=== PATIENT | female | born 1970 | race Caucasian/White ===

== ENCOUNTER 2020-10-15 13:04 | Outpatient (REF) | payer MEDICARE, MEDICAID, SELFPAY ==
--- NOTE | ~2020-10-15 | US_ITS ---
EXAMINATION: US SCREENING ULTRASOUND BREAST, BILATERAL CLINICAL INFORMATION: 50 year old. Unable to undergo screening mammography or MR. COMPARISON: None. TECHNIQUE: Ultrasound is performed using grayscale imaging and color Doppler. Imaging is performed to include the four quadrants and retroareolar region. Both breasts are imaged. FINDINGS: Right breast: There is no suspicious finding by ultrasound. There is no cystic or solid mass or focal architectural abnormality. Left breast: There is no suspicious finding by ultrasound. There is no solid mass or focal architectural abnormality. US/US breast LT complete IMPRESSION: Unremarkable bilateral screening breast ultrasound. ASSESSMENT: BI-RADS 1: Negative RECOMMENDATION: 1. Routine annual clinical breast exam. 2. If patient unable to undergo screening mammography, follow-up bilateral screening ultrasound in one year may be considered as an alternative. This patient's information was entered into a reminder system with a target due date for their next breast imaging.
--- NOTE | ~2020-10-15 | US_ITS ---
EXAMINATION: US SCREENING ULTRASOUND BREAST, BILATERAL CLINICAL INFORMATION: 50 year old. Unable to undergo screening mammography or MR. COMPARISON: None. TECHNIQUE: Ultrasound is performed using grayscale imaging and color Doppler. Imaging is performed to include the four quadrants and retroareolar region. Both breasts are imaged. FINDINGS: Right breast: There is no suspicious finding by ultrasound. There is no cystic or solid mass or focal architectural abnormality. Left breast: There is no suspicious finding by ultrasound. There is no solid mass or focal architectural abnormality. US/US breast RT complete IMPRESSION: Unremarkable bilateral screening breast ultrasound. ASSESSMENT: BI-RADS 1: Negative RECOMMENDATION: 1. Routine annual clinical breast exam. 2. If patient unable to undergo screening mammography, follow-up bilateral screening ultrasound in one year may be considered as an alternative. This patient's information was entered into a reminder system with a target due date for their next breast imaging.
== END 2020-10-15 13:05 | disposition home or self-care (01) ==
LOC: HO.MAMMO 13:04
PROVIDERS: PCP Hospitalist; Visit Provider Hospitalist
DX: Z12.39 Encounter for other screening for malignant neoplasm of breast (principal); Z80.3 Family history of malignant neoplasm of breast
CPT/HCPCS: 76641

== ENCOUNTER 2021-10-13 11:18 | Outpatient (REF) | payer MEDICARE, MEDICAID, SELFPAY ==
--- NOTE | ~2021-10-13 | US_ITS ---
EXAMINATION: US SCREENING ULTRASOUND BREAST, BILATERAL CLINICAL INFORMATION: Unable to undergo screening mammography or MRI. Age 51. COMPARISON: Bilateral screening breast ultrasound 10/15/2020 TECHNIQUE: Ultrasound is performed using grayscale imaging and color Doppler. Imaging is performed to include the four quadrants and retroareolar region. Both breasts are imaged. FINDINGS: Right breast: There is no cystic or solid mass or focal architectural abnormality. The skin contours are smooth. No skin thickening or edema in soft tissue planes. There is no suspicious finding by ultrasound. Left breast: There is no cystic or solid mass or focal architectural abnormality. The skin contours are smooth. No skin thickening or edema in soft tissue planes. There is no suspicious finding by ultrasound. US/US breast LT complete IMPRESSION: Normal study. ASSESSMENT: BI-RADS 1: Negative RECOMMENDATION: 1. Routine annual clinical breast exam. 2. If patient is able to undergo screening mammography, follow-up bilateral screening ultrasound May be considered as a less than optimal alternative. This patient's information was entered into a reminder system with a target due date for their next mammogram.
--- NOTE | ~2021-10-13 | US_ITS ---
EXAMINATION: US SCREENING ULTRASOUND BREAST, BILATERAL CLINICAL INFORMATION: Unable to undergo screening mammography or MRI. Age 51. COMPARISON: Bilateral screening breast ultrasound 10/15/2020 TECHNIQUE: Ultrasound is performed using grayscale imaging and color Doppler. Imaging is performed to include the four quadrants and retroareolar region. Both breasts are imaged. FINDINGS: Right breast: There is no cystic or solid mass or focal architectural abnormality. The skin contours are smooth. No skin thickening or edema in soft tissue planes. There is no suspicious finding by ultrasound. Left breast: There is no cystic or solid mass or focal architectural abnormality. The skin contours are smooth. No skin thickening or edema in soft tissue planes. There is no suspicious finding by ultrasound. US/US breast RT complete IMPRESSION: Normal study. ASSESSMENT: BI-RADS 1: Negative RECOMMENDATION: 1. Routine annual clinical breast exam. 2. If patient is able to undergo screening mammography, follow-up bilateral screening ultrasound May be considered as a less than optimal alternative. This patient's information was entered into a reminder system with a target due date for their next mammogram.
== END 2021-10-13 11:19 | disposition home or self-care (01) ==
LOC: HO.MAMMO 11:18
PROVIDERS: PCP Hospitalist; Visit Provider Hospitalist
DX: Z12.39 Encounter for other screening for malignant neoplasm of breast (principal); Z80.3 Family history of malignant neoplasm of breast
CPT/HCPCS: 76641

== ENCOUNTER 2022-10-31 11:50 | Outpatient (REF) | payer MEDICARE, MEDICAID, SELFPAY ==
--- NOTE | ~2022-10-31 | US_ITS ---
EXAMINATION: US SCREENING ULTRASOUND BREAST, BILATERAL CLINICAL INFORMATION: Unable to undergo routine screening mammography and/or MRI. Age 52. COMPARISON: Bilateral screening ultrasound 10/13/2021, 10/15/2020. TECHNIQUE: Ultrasound is performed using grayscale imaging and color Doppler. Imaging is performed to include the four quadrants and retroareolar region. Both breasts are imaged. FINDINGS: Right breast: There is no suspicious finding by ultrasound. There is no cystic or solid mass or focal architectural abnormality. No skin thickening or edema tracking in soft tissue planes. Left breast: There is no suspicious finding by ultrasound. There is no cystic or solid mass or focal architectural abnormality. No skin thickening or edema tracking in soft tissue planes. US/US breast RT complete IMPRESSION: Normal study. ASSESSMENT: BI-RADS 1: Negative RECOMMENDATION: -Routine annual clinical exam. -If patient is unable to undergo screening mammography, follow-up bilateral screening ultrasound in 1 year. This patient's information was entered into a reminder system with a target due date for their next breast imaging.
--- NOTE | ~2022-10-31 | US_ITS ---
EXAMINATION: US SCREENING ULTRASOUND BREAST, BILATERAL CLINICAL INFORMATION: Unable to undergo routine screening mammography and/or MRI. Age 52. COMPARISON: Bilateral screening ultrasound 10/13/2021, 10/15/2020. TECHNIQUE: Ultrasound is performed using grayscale imaging and color Doppler. Imaging is performed to include the four quadrants and retroareolar region. Both breasts are imaged. FINDINGS: Right breast: There is no suspicious finding by ultrasound. There is no cystic or solid mass or focal architectural abnormality. No skin thickening or edema tracking in soft tissue planes. Left breast: There is no suspicious finding by ultrasound. There is no cystic or solid mass or focal architectural abnormality. No skin thickening or edema tracking in soft tissue planes. US/US breast LT complete IMPRESSION: Normal study. ASSESSMENT: BI-RADS 1: Negative RECOMMENDATION: -Routine annual clinical exam. -If patient is unable to undergo screening mammography, follow-up bilateral screening ultrasound in 1 year. This patient's information was entered into a reminder system with a target due date for their next breast imaging.
== END 2022-10-31 11:51 | disposition home or self-care (01) ==
LOC: HO.MAMMO 11:50
PROVIDERS: Visit Provider Hospitalist
DX: Z12.31 Encounter for screening mammogram for malignant neoplasm of breast (principal); Z80.3 Family history of malignant neoplasm of breast
CPT/HCPCS: 76641

== ENCOUNTER 2023-09-26 11:39 | Outpatient (REF) | payer MEDICARE, MEDICAID, SELFPAY ==
--- NOTE | ~2023-09-26 | US_ITS ---
EXAMINATION: US SCREENING ULTRASOUND BREAST, BILATERAL CLINICAL INFORMATION: Unable to undergo routine screening mammography and/or MRI due to disabilities. Age 52. COMPARISON: Bilateral screening ultrasound 10/31/2022, 10/13/2021, 10/15/2020. TECHNIQUE: Ultrasound is performed using grayscale imaging and color Doppler. Imaging is performed to include the four quadrants and retroareolar region. Both breasts are imaged. Best imaging acquired given patient's limitations. FINDINGS: RIGHT BREAST: There is no suspicious finding by ultrasound. There is no cystic or solid mass or focal architectural abnormality. No skin thickening or edema tracking in soft tissue planes. LEFT BREAST: There is no suspicious finding by ultrasound. There is no cystic or solid mass or focal architectural abnormality. No skin thickening or edema tracking in soft tissue planes. US/US breast LT complete mammo IMPRESSION: Normal study. No findings suspicious for malignancy in either breast. ASSESSMENT: BI-RADS 1: Negative RECOMMENDATION: -Routine annual clinical exam. -If patient is unable to undergo screening mammography, follow-up bilateral screening ultrasound in 1 year. This patient's information was entered into a reminder system with a target due date for their next breast imaging.
--- NOTE | ~2023-09-26 | US_ITS ---
EXAMINATION: US SCREENING ULTRASOUND BREAST, BILATERAL CLINICAL INFORMATION: Unable to undergo routine screening mammography and/or MRI due to disabilities. Age 52. COMPARISON: Bilateral screening ultrasound 10/31/2022, 10/13/2021, 10/15/2020. TECHNIQUE: Ultrasound is performed using grayscale imaging and color Doppler. Imaging is performed to include the four quadrants and retroareolar region. Both breasts are imaged. Best imaging acquired given patient's limitations. FINDINGS: RIGHT BREAST: There is no suspicious finding by ultrasound. There is no cystic or solid mass or focal architectural abnormality. No skin thickening or edema tracking in soft tissue planes. LEFT BREAST: There is no suspicious finding by ultrasound. There is no cystic or solid mass or focal architectural abnormality. No skin thickening or edema tracking in soft tissue planes. US/US breast RT complete mammo IMPRESSION: Normal study. No findings suspicious for malignancy in either breast. ASSESSMENT: BI-RADS 1: Negative RECOMMENDATION: -Routine annual clinical exam. -If patient is unable to undergo screening mammography, follow-up bilateral screening ultrasound in 1 year. This patient's information was entered into a reminder system with a target due date for their next breast imaging.
== END 2023-09-26 11:40 | disposition home or self-care (01) ==
LOC: HO.MAMMO 11:39
PROVIDERS: Visit Provider Hospitalist
DX: Z12.39 Encounter for other screening for malignant neoplasm of breast (principal); Z80.3 Family history of malignant neoplasm of breast
CPT/HCPCS: 76641

== ENCOUNTER → 2023-09-26 12:18 | Outpatient (BNV) | payer MEDICARE, MEDICAID, SELFPAY | PROVIDERS: Visit Provider Radiology Diagnostic Radiology | DX: R92.8 Other abnormal and inconclusive findings on diagnostic imaging of breast (principal) | CPT/HCPCS: 76641 ==

== ENCOUNTER 2024-11-07 11:55 | Outpatient (REF) | payer MEDICARE, MEDICAID, SELFPAY ==
--- NOTE | ~2024-11-07 | US_ITS ---
EXAMINATION: US SCREENING ULTRASOUND BREAST, BILATERAL CLINICAL INFORMATION: Dense breasts on mammography. Screening ultrasound. Limited imaging due to patient's limitations. COMPARISON: [facility] on PACS. TECHNIQUE: Ultrasound is performed using grayscale imaging and color Doppler. Imaging is performed to include the four quadrants and retroareolar region. Both breasts are imaged. FINDINGS: Right breast: There is no suspicious finding by ultrasound. There is no solid mass or focal architectural abnormality. Left breast: There is no suspicious finding by ultrasound. There is no solid mass or focal architectural abnormality. US/US breast BI complete IMPRESSION: No suspicious findings on screening breast ultrasound. ASSESSMENT: BI-RADS 1 - Negative RECOMMENDATION: 1 year F/U This patient's information was entered into a reminder system with a target due date for their next mammogram. Electronically signed by: Cielo Palma DO 11/07/2024 12:33 PM EDT
--- OUTSIDE RECORDS SUMMARY | 2024-11-07 14:32 | XMS_ITS | Encounter Summary ---
Author Organization [facility] Address [address] [place] [address] Care Team Providers Care Major Gifts Manager Name Role Phone Markus Gonzalez MD Primary Care Provider [phone] Encounter Details Date Type Department Care Team (Late st Contact Info) Description 08/13/2024 Lab Requisition [facility] - Main Lab [address] [facility] [email or web address] [address] Markus Gonzalez MD [address] [place] [address] [address] TAMMY Castaneda Hypothyroidism, unspecified Social History Tobacco Use Types Packs/Day Years Used Date Smoking Tobacco: Never Assessed Comments Unknown Sex and Gender Information Value Date Recorded Sex Assigned at Not on file Legal Sex Female 12:51 AM EST Gender Identity Not on file Sexual Orientation Not on file documented as of this encounter Plan of Treatment Not on file documented as of this encounter Procedures Procedure Name Priority Date/Time Associated Diagnosis Comments THYROID STIMULATING HORMONE Routine 08/13/2024 7:02 AM EST Hypothyroidism, unspecified THYROXINE FREE Routine 08/13/2024 7:02 AM EST Hypothyroidism, unspecified documented in this encounter Results * Thyroid stimulating hormone (08/13/2024 7:02 AM EST) TSH 0.77 0.40 - 4.00 mcIU/mL LAB CHEMISTRY METHOD 08/13/2024 10:06 AM EST [facility] Blood Venous blood specimen / Unknown 08/13/2024 7:02 AM EST 08/13/2024 7:37 AM EST us Markus Gonzalez MD LAB BLOOD ORDERABLES Final Resul t [facility] [address] [place] [address], [place] [phone] * Thyroxine free (08/13/2024 7:02 AM EST) Free T4 1.27 0.70 - 1.80 ng/dL LAB CHEMISTRY METHOD 08/13/2024 10:05 AM EST [facility] Blood Venous blood specimen / Unknown 08/13/2024 7:02 AM EST 08/13/2024 7:37 AM EST us Markus Gonzalez MD LAB BLOOD ORDERABLES Final Resul t [facility] [address] [place] [address], [place] [phone] documented in this encounter Visit Diagnoses Diagnosis Hypothyroidism, unspecified documented in this encounter Care Teams Major Gifts Manager Relationship Specialty Start Date End Date Markus Gonzalez MD [address] [place] [address] Dr [address] [place] PCP - General Internal Medicine 10/02/24 documented as of this encounter
--- OUTSIDE RECORDS SUMMARY | 2024-11-07 14:32 | XMS_ITS | Encounter Summary ---
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) Social History Tobacco Use Types Packs/Day Years [...] Procedure Name Priority Date/Time Associated Diagnosis Comments AMMONIA Routine 10/02/2024 7:16 AM EST Other disorders of urea cycle metabolism (CMS/HCC) COMPREHENSIVE METABOLIC PANEL Routine 10/02/2024 7:16 AM EST Other disorders of urea cycle metabolism (CMS/HCC) documented in this encounter Results * (ABNORMAL) Ammonia (10/02/2024 7:16 AM EST) Ammonia 43(H) 11 - 35 mcmol/L LAB CHEMISTRY METHOD 10/02/2024 8:20 AM EST [facility] Blood Venous blood specimen / Unknown 10/02/2024 7:16 AM EST 10/02/2024 7:50 AM EST us Markus Gonzalez MD LAB BLOOD ORDERABLES Final Resul t [facility] [address] [place] [address], * (ABNORMAL) Comprehensive metabolic panel (10/02/2024 7:16 AM EST) Sodium 140 133 - 145 mmol/L LAB CHEMISTRY METHOD 10/02/2024 8:21 AM [facility] Potassium 4.5 3.5 - 5.5 mmol/L LAB CHEMISTRY METHOD 10/02/2024 8:21 AM [facility] Chloride 108 96 - 110 mmol/L LAB CHEMISTRY METHOD 10/02/2024 8:21 AM [facility] CO2 28 21 - 32 mmol/L LAB CHEMISTRY METHOD 10/02/2024 8:21 AM [facility] Anion Gap 4 3 - 11 LAB CHEMISTRY METHOD 10/02/2024 8:21 AM [facility] Glucose 83 70 - 100 mg/dL LAB CHEMISTRY METHOD 10/02/2024 8:21 AM [facility] BUN 11 5 - 25 mg/dL LAB CHEMISTRY METHOD 10/02/2024 8:21 AM [facility] Creatinine 0.54 0.50 - 1.10 mg/dL LAB CHEMISTRY METHOD 10/02/2024 8:21 AM [facility] eGFR 111 >=60 mL/min/1. 73m2 LAB CHEMISTRY METHOD 10/02/2024 8:21 AM [facility] Comment:Calculation based on the??Chronic Kidney Disease Epidemiology Collaboration (CKD-EPI) equation refit??without adjustment for race. BUN/Creatinine Ratio 20.4 LAB CHEMISTRY METHOD 10/02/2024 8:21 AM [facility] Calcium 9.6 8.5 - 10.5 mg/dL LAB CHEMISTRY METHOD 10/02/2024 8:21 AM [facility] AST (SGOT) 11 10 - 42 unit/L LAB CHEMISTRY METHOD 10/02/2024 8:21 AM [facility] ALT (SGPT) 15 10 - 60 unit/L LAB CHEMISTRY METHOD 10/02/2024 8:21 AM [facility] Alkaline Phosphatase 59 42 - 121 unit/L LAB CHEMISTRY METHOD 10/02/2024 8:21 AM [facility] Total Protein 6.5 6.0 - 8.0 g/dL LAB CHEMISTRY METHOD 10/02/2024 8:21 AM [facility] Albumin 3.1(L) 3.2 - 5.0 g/dL LAB CHEMISTRY METHOD 10/02/2024 8:21 AM [facility] Total Bilirubin 0.3 0.0 - 1.4 mg/dL LAB CHEMISTRY METHOD 10/02/2024 8:21 AM [facility] Blood Venous blood specimen / Unknown 10/02/2024 7:16 AM EST 10/02/2024 7:50 AM EST us Markus Gonzalez MD LAB BLOOD ORDERABLES Final Resul t [facility] [address] [place] [address], documented in this encounter Visit Diagnoses Diagnosis 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
--- OUTSIDE RECORDS SUMMARY | 2024-11-07 14:32 | XMS_ITS | Clinical Summary ---
Author Organization [address] [facility] Address [address] [place] [address] Phone Care Team Providers Care Food Mobile Driver Name Role Phone Markus Gonzalez MD Primary Care Provider [phone] Encounters Date Type Department Care Team Description 10/02/2024 Lab Requisition [facility] Lab [address] [place] [address] Markus Gonzalez MD Other disorders of urea cycle metabolism ([facility] V24) 08/13/2024 Lab Requisition [facility] Lab [address] [place] [address] Markus Gonzalez MD Hypothyroidism, unspecified from Last 3 Months Social History Tobacco Use Types Packs/Day Years Used Date Smoking Tobacco: Never Assessed Comments Unknown Sex and Gender Information Value Date Recorded Sex Assigned at Not on file Legal Sex Female 12:51 AM EST Gender Identity Not on file Sexual Orientation Not on file Plan of Treatment Health Maintenance Due Date Last Done Comments Breast Cancer Screening 1970 DTaP,Tdap,and Td Vaccines (1 - Tdap) 02/14/1991 Hepatitis B Vaccines (1 of 3 - 19+ 3-dose series) 02/14/1991 Cervical Cancer Screening: P ap Smear 02/14/1993 Pneumococcal Vaccine: 50+ Ye ars (1 of 1 - PCV) 02/14/2022 Zoster Vaccines (1 of 2) 02/14/2022 Colorectal Cancer Screening: Colonoscopy 07/03/2022 Depression Screening 07/03/2022 HIV Screening 07/03/2022 Hepatitis C Screening 07/03/2022 Medicare Annual Wellness Visit 07/03/2022 Social Influencers of Health Screening 07/03/2022 COVID-19 Vaccine ( - 2023-2 5 season) 2024 Influenza Vaccine (Season Ended) 2025 05/13/20 21 HIB Vaccines Aged Out No longer eligi ble based on patient's age to complete this topic HPV Vaccines Aged Out No longer eligi ble based on patient's age to complete this topic Hepatitis A Vaccines Aged Out No long er eligible based on patient's age to complete this topic IPV Vaccines Aged Out No longer eligi ble based on patient's age to complete this topic MMR Vaccines Aged Out No longer eligi ble based on patient's age to complete this topic Meningococcal ACWY Vaccine Aged Out N o longer eligible based on patient's age to complete this topic Meningococcal B Vaccine Aged Out No l onger eligible based on patient's age to complete this topic Pneumococcal Vaccine: Pediat rics (0 to 5 Years) and At-Risk Patients (6 to 64 Years) Aged Out No longer eligi ble based on patient's age to complete this topic RSV Immunization Patients Un agustin 20 months Aged Out No longer eligible b ased on patient's age to complete this topic Varicella Vaccines Aged Out No longer eligible based on patient's age to complete this topic Procedures Procedure Name Priority Date/Time Associated Diagnosis Comments AMMONIA Routine 10/02/2024 7:16 AM EST Other disorders of urea cycle metabolism (CMS/HCC) COMPREHENSIVE METABOLIC PANEL Routine 10/02/2024 7:16 AM EST Other disorders of urea cycle metabolism (CMS/HCC) THYROID STIMULATING HORMONE Routine 08/13/2024 7:02 AM EST Hypothyroidism, unspecified THYROXINE FREE Routine 08/13/2024 7:02 AM EST Hypothyroidism, unspecified from Last 3 Months Results * (ABNORMAL) Ammonia (10/02/2024 7:16 AM EST) Ammonia 43(H) 11 - 35 mcmol/L LAB CHEMISTRY METHOD 10/02/2024 8:20 AM EST [facility] Blood Venous blood specimen / Unknown 10/02/2024 7:16 AM EST 10/02/2024 7:50 AM EST us Markus Gonzalez MD LAB BLOOD ORDERABLES Final Resul t [facility] [address] [place] [address], * (ABNORMAL) Comprehensive metabolic panel (10/02/2024 7:16 AM EST) Sodium 140 133 - 145 mmol/L LAB CHEMISTRY METHOD 10/02/2024 8:21 AM [facility] Potassium 4.5 3.5 - 5.5 mmol/L LAB CHEMISTRY METHOD 10/02/2024 8:21 AM [facility] Chloride 108 96 - 110 mmol/L LAB CHEMISTRY METHOD 10/02/2024 8:21 AM [facility] CO2 28 21 - 32 mmol/L LAB CHEMISTRY METHOD 10/02/2024 8:21 AM [facility] Anion Gap 4 3 - 11 LAB CHEMISTRY METHOD 10/02/2024 8:21 AM [facility] Glucose 83 70 - 100 mg/dL LAB CHEMISTRY METHOD 10/02/2024 8:21 AM [facility] BUN 11 5 - 25 mg/dL LAB CHEMISTRY METHOD 10/02/2024 8:21 AM [facility] Creatinine 0.54 0.50 - 1.10 mg/dL LAB CHEMISTRY METHOD 10/02/2024 8:21 AM [facility] eGFR 111 >=60 mL/min/1. 73m2 LAB CHEMISTRY METHOD 10/02/2024 8:21 AM [facility] Comment:Calculation based on the??Chronic Kidney Disease Epidemiology Collaboration (CKD-EPI) equation refit??without adjustment for race. BUN/Creatinine Ratio 20.4 LAB CHEMISTRY METHOD 10/02/2024 8:21 AM [facility] Calcium 9.6 8.5 - 10.5 mg/dL LAB CHEMISTRY METHOD 10/02/2024 8:21 AM [facility] AST (SGOT) 11 10 - 42 unit/L LAB CHEMISTRY METHOD 10/02/2024 8:21 AM [facility] ALT (SGPT) 15 10 - 60 unit/L LAB CHEMISTRY METHOD 10/02/2024 8:21 AM [facility] Alkaline Phosphatase 59 42 - 121 unit/L LAB CHEMISTRY METHOD 10/02/2024 8:21 AM [facility] Total Protein 6.5 6.0 - 8.0 g/dL LAB CHEMISTRY METHOD 10/02/2024 8:21 AM [facility] Albumin 3.1(L) 3.2 - 5.0 g/dL LAB CHEMISTRY METHOD 10/02/2024 8:21 AM [facility] Total Bilirubin 0.3 0.0 - 1.4 mg/dL LAB CHEMISTRY METHOD 10/02/2024 8:21 AM [facility] Blood Venous blood specimen / Unknown 10/02/2024 7:16 AM EST 10/02/2024 7:50 AM EST us Markus Gonzalez MD LAB BLOOD ORDERABLES Final Resul t Performing Organization Address City/[facility]/ZIP Co de Phone Number [facility] [address] [place] [address], [place] [phone] * Thyroid stimulating hormone (08/13/2024 7:02 AM EST) TSH 0.77 0.40 - 4.00 mcIU/mL LAB CHEMISTRY METHOD 08/13/2024 10:06 AM [facility] Blood Venous blood specimen / Unknown 08/13/2024 7:02 AM EST 08/13/2024 7:37 AM EST us Markus Gonzalez MD LAB BLOOD ORDERABLES Final Resul t Performing Organization Address City/[facility]/ZIP Co de Phone Number [facility] [address] [place] [address], [place] [phone] * Thyroxine free (08/13/2024 7:02 AM EST) Free T4 1.27 0.70 - 1.80 ng/dL LAB CHEMISTRY METHOD 08/13/2024 10:05 AM EST [facility] [place] ([facility]) [facility] Blood Venous blood specimen / Unknown 08/13/2024 7:02 AM EST 08/13/2024 7:37 AM EST us Markus Gonzalez MD LAB BLOOD ORDERABLES Final Resul t [facility] ([facility]) [facility] [address] [place] [address], from Last 3 Months Insurance MEDICARE MEDICAID - [place] Care Teams Food Mobile Driver Relationship Specialty Start Date End Date Markus Gonzalez MD [address] [place] [address] Dr [address] TAMMY Castaneda PCP - General Internal Medicine 10/02/24
--- OUTSIDE RECORDS SUMMARY | 2024-11-07 14:32 | XMS_ITS | Encounter Summary ---
Author Organization [facility] Address [address] [place] [address] Care Team Providers Care Ton Cylinder Inspector Name Role Phone Markus Gonzalez MD Primary Care Provider [phone] Encounter Details Date Type Department Care Team (Late st Contact Info) Description 07/03/2024 Lab Requisition [facility] - Main Lab [address] [facility] [place] [address] Markus Gonzalez MD [address] [place] [address] Dr [address] TAMMY Castaneda Other specified intracranial injury without loss of consciousness, subsequent encounter; Altered mental status, unspecified Social History Tobacco Use Types Packs/Day [...] Procedure Name Priority Date/Time Associated Diagnosis Comments RED - PLAIN Routine 07/03/2024 7:55 AM EST Other specified intracranial injury without loss of consciousness, subsequent encounter Altered mental status, unspecified COMPLETE BLOOD COUNT Routine 07/03/2024 7:55 AM EST Other specified intracranial injury without loss of consciousness, subsequent encounter Altered mental status, unspecified AMMONIA Routine 07/03/2024 7:55 AM EST Other specified intracranial injury without loss of consciousness, subsequent encounter Altered mental status, unspecified VALPROIC ACID LEVEL, TOTAL Routine 07/03/2024 7:55 AM EST Other specified intracranial injury without loss of consciousness, subsequent encounter Altered mental status, unspecified COMPREHENSIVE METABOLIC PANEL Routine 07/03/2024 7:55 AM EST Other specified intracranial injury without loss of consciousness, subsequent encounter Altered mental status, unspecified documented in this encounter Results * Red tube (07/03/2024 7:55 AM EST) Extra Tube Hold for add-ons. 07/03/2024 10:01 AM EST [facility] Comment:Auto resulted. Blood Venous blood specimen / Unknown 07/03/2024 7:55 AM EST 07/03/2024 8:37 AM EST us Markus Gonzalez MD LAB BLOOD ORDERABLES Final Resul t Performing Organization Address City/[facility]/ZIP Co de Phone Number [facility] [address] [place] [address], [place] [phone] * Ammonia (07/03/2024 7:55 AM EST) Ammonia 23 11 - 35 mcmol/L LAB CHEMISTRY METHOD 07/03/2024 8:56 AM EST [facility] Blood Venous blood specimen / Unknown 07/03/2024 7:55 AM EST 07/03/2024 8:35 AM EST us Markus Gonzalez MD LAB BLOOD ORDERABLES Final Resul t Performing Organization Address [facility] Co de Phone Number [facility] [address] [place] [address], [place] [phone] * Valproic acid level, total (07/03/2024 7:55 AM EST) Valproic Acid, Total 59 50 - 100 mcg/mL LAB CHEMISTRY METHOD 07/03/2024 9:00 AM EST [facility] Blood Venous blood specimen / Unknown 07/03/2024 7:55 AM EST 07/03/2024 8:35 AM EST us Markus Gonzalez MD LAB BLOOD ORDERABLES Final Resul t Performing Organization Address City/[facility]/ZIP Co de Phone Number [facility] [address] [place] [address], * (ABNORMAL) Comprehensive metabolic panel (07/03/2024 7:55 AM EST) Sodium 144 133 - 145 mmol/L LAB CHEMISTRY METHOD 07/03/2024 9:00 AM [facility] Potassium 4.4 3.5 - 5.5 mmol/L LAB CHEMISTRY METHOD 07/03/2024 9:00 AM [facility] Chloride 108 96 - 110 mmol/L LAB CHEMISTRY METHOD 07/03/2024 9:00 AM [facility] CO2 32 21 - 32 mmol/L LAB CHEMISTRY METHOD 07/03/2024 9:00 AM [facility] Anion Gap 4 3 - 11 LAB CHEMISTRY METHOD 07/03/2024 9:00 AM [facility] Glucose 80 70 - 100 mg/dL LAB CHEMISTRY METHOD 07/03/2024 9:00 AM [facility] BUN 16 5 - 25 mg/dL LAB CHEMISTRY METHOD 07/03/2024 9:00 AM [facility] Creatinine 0.63 0.50 - 1.10 mg/dL LAB CHEMISTRY METHOD 07/03/2024 9:00 AM [facility] eGFR 107 >=60 mL/min/1. 73m2 LAB CHEMISTRY METHOD 07/03/2024 9:00 AM [facility] Comment:Calculation based on the??Chronic Kidney Disease Epidemiology Collaboration (CKD-EPI) equation refit??without adjustment for race. BUN/Creatinine Ratio 25.4 LAB CHEMISTRY METHOD 07/03/2024 9:00 AM [facility] Calcium 9.3 8.5 - 10.5 mg/dL LAB CHEMISTRY METHOD 07/03/2024 9:00 AM [facility] AST (SGOT) 8(L) 10 - 42 unit/L LAB CHEMISTRY METHOD 07/03/2024 9:00 AM [facility] ALT (SGPT) 12 10 - 60 unit/L LAB CHEMISTRY METHOD 07/03/2024 9:00 AM [facility] Alkaline Phosphatase 59 42 - 121 unit/L LAB CHEMISTRY METHOD 07/03/2024 9:00 AM [facility] Total Protein 6.3 6.0 - 8.0 g/dL LAB CHEMISTRY METHOD 07/03/2024 9:00 AM [facility] Albumin 3.1(L) 3.2 - 5.0 g/dL LAB CHEMISTRY METHOD 07/03/2024 9:00 AM [facility] Total Bilirubin 0.3 0.0 - 1.4 mg/dL LAB CHEMISTRY METHOD 07/03/2024 9:00 AM [facility] Blood Venous blood specimen / Unknown 07/03/2024 7:55 AM EST 07/03/2024 8:35 AM EST us Markus Gonzalez MD LAB BLOOD ORDERABLES Final Resul t [facility] [address] [place] [address], * (ABNORMAL) Complete blood count (07/03/2024 7:55 AM EST) WBC 7.3 4.8 - 10.8 K/mcL LAB HEMETOLOGY METHOD 07/03/2024 8:53 AM [facility] RBC 4.50 3.80 - 4.80 M/mcL LAB HEMETOLOGY METHOD 07/03/2024 8:53 AM [facility] Hemoglobin 13.3 11.5 - 16.0 g/dL LAB HEMETOLOGY METHOD 07/03/2024 8:53 AM [facility] Hematocrit 42.2 35.0 - 47.0 % LAB HEMETOLOGY METHOD 07/03/2024 8:53 AM EST [facility] MCV 94.2 79.0 - 98.0 FL LAB HEMETOLOGY METHOD 07/03/2024 8:53 AM EST [facility] MCH 29.7 27.0 - 32.0 pcg LAB HEMETOLOGY METHOD 07/03/2024 8:53 AM [facility] MCHC 31.5(L) 32.0 - 37.0 g/dL LAB HEMETOLOGY METHOD 07/03/2024 8:53 AM EST [facility] RDW 13.9 11.0 - 15.0 % LAB HEMETOLOGY METHOD 07/03/2024 8:53 AM [facility] Platelets 199 130 - 400 K/mcL LAB HEMETOLOGY METHOD 07/03/2024 8:53 AM [facility] MPV 11.9(H) 7.0 - 11.0 FL LAB HEMETOLOGY METHOD 07/03/2024 8:53 AM EST [facility] NRBC 0.0 <1.0 % LAB HEMETOLOGY METHOD 07/03/2024 8:53 AM [facility] NRBC Absolute 0.00 <0.10 K/mcL LAB HEMETOLOGY METHOD 07/03/2024 8:53 AM [facility] Blood Venous blood specimen / Unknown 07/03/2024 7:55 AM EST 07/03/2024 8:35 AM EST us Markus Gonazlez MD LAB BLOOD ORDERABLES Final Resul t [facility] [address] [place] [address], documented in this encounter Visit Diagnoses Diagnosis Other specified intracranial injury without loss of consciousness, subsequent encounter Altered mental status, unspecified documented in this encounter Care Teams Ton Cylinder Inspector Relationship Specialty Start Date End Date Markus Gonzalez MD [address] [place] [address] Dr [address] TAMMY Castaneda PCP - General Internal Medicine 10/02/24 documented as of this encounter
== END 2024-11-07 11:56 | disposition home or self-care (01) ==
LOC: HO.MAMMO 11:55
PROVIDERS: PCP Hospitalist; Visit Provider Hospitalist
DX: Z12.31 Encounter for screening mammogram for malignant neoplasm of breast (principal)
CPT/HCPCS: 76641

== ENCOUNTER → 2024-11-07 12:00 | Outpatient (BNV) | payer MEDICARE, MEDICAID, SELFPAY | PROVIDERS: PCP Hospitalist; Visit Provider Internal Medicine | DX: R92.8 Other abnormal and inconclusive findings on diagnostic imaging of breast (principal) | CPT/HCPCS: 76641 ==